=== PATIENT | male | born 1980 | race Caucasian/White ===

== ENCOUNTER 2019-06-09 15:19 | Emergency (ER) | payer OTHER ==
[~2019-06-09] VITALS: Ht 177.8 cm; Wt 111.1 kg
[2019-06-09] MEDS ORDERED: HYDROCHLOROTH12.5 M1 PO (21:07)
[2019-06-09] MEDS ORDERED: HYDROXYZIN10 MG/5 M1 (21:24)
== END 2019-06-09 21:14 | disposition home or self-care (01) ==
LOC: ER 15:19
DX: R07.89 Other chest pain (principal)

== ENCOUNTER 2019-09-25 15:38 | Emergency (ER) | payer OTHER ==
[~2019-09-25] VITALS: Ht 177.8 cm; Wt 112.5 kg
[~2019-09-25 15:38] MED LIST: HYDROCHLOROTH12.5 M1 PO; HYDROXYZIN10 MG/5 M1
[2019-09-25] MEDS ORDERED: AVAPRO150 MG (15:44)
== END 2019-09-25 20:06 | disposition home or self-care (01) ==
LOC: ER 15:38
DX: N43.2 Other hydrocele (principal); N50.812 Left testicular pain